=== PATIENT | female | born 1955 | race Caucasian/White ===

== ENCOUNTER 2017-04-13 00:59 | Day surgery (SDC) | payer OTHER ==
[2013-08-30 13:09] VITALS: Ht 160 cm; Wt 99.8 kg
[~2017-04-13] VITALS: Ht 160 cm; Wt 99.8 kg
[~2017-04-13 00:59] MED LIST: ALPR-429 PO; ASP81; ASPI-816 PO; BUTA1CAP51 PO; CALC-18 PO; CEPH250C37 PO; CIPR-214 PO; CLOB15CR22 TP; CLOB15OI TP; CLOB50FO2 TP; CODE118S5 PO; CRAN250C2; ESOM40CA42 PO; ESTR42.5 VG; FLUT16SP19 NS; HYDR12.556 PO; IBUP800T37 PO; LISI-362 PO; LISI20TA29 PO; LOSA50TA68 PO; MULT-804; NITR-105 PO; OMEG500C5 PO; OXYC-865 PO; PHEN15CA69 PO; SIM10 PO; SIMV-54 PO; SIMV10TA98 PO; SPIR25TA78 PO; SPIR50TA30 PO; SUMA100T32 PO; ZOL5 PO; ZOLP-1 PO; ZOLP-358 PO; [UNRECOGNIZED DRUG - CODE]; [UNRECOGNIZED DRUG - CODE] TP
[2017-04-13 07:46] VITALS: BP 130/84
[2017-04-13] MEDS ORDERED: MIDAZOLAM 2 MG/2 ML VIAL IVP PRN (08:15)
[2017-04-13] MEDS ORDERED: NORMOSOL R SOLN(*) 1000 ML BAG 1,000 ML IV PRN (08:15)
[2017-04-13] MEDS ORDERED: LIDOCAINE/SOD BICARB 8.4% SYR ID ONE (08:15)
[2017-04-13 09:43] VITALS: BP 102/62
--- NOTE | 2017-04-13 09:53 | Short(Outpt) Discharge Summary ---
Discharge Summary Reason for Hosp/Final Diag: (1) History of colon polyps Status: Chronic Hospital Course & Plan: Colonoscopy with polypectomy x5 completed without problems. Departure Discharge to: Home, Self Care Discharge Instructions Home Meds Active Scripts Hydrochlorothiazide (HYDROCHLOROTHIAZIDE) 12.5 Mg Capsule, 2 TAB PO DAILY, #180 CAPSULE 4 Refills Prov:JEISON GHOTRA MD 04/04/17 Simvastatin (SIMVASTATIN) 40 Mg Tablet, 40 MG PO HS, #90 TAB 3 Refills Prov:JEISON GHOTRA MD 03/17/17 Alprazolam (XANAX) 0.5 Mg Tablet, 1 TAB PO TID for Anxiety, #30 TAB Prov:JEISON GHOTRA MD 01/24/17 Zolpidem Tartrate (AMBIEN) 5 Mg Tablet, 1 TAB PO QODAY, #45 TAB 1 Refill Prov:JEISON GHOTRA MD 01/24/17 Butalbital/Aspirin/Caffeine (FIORINAL 50-325-40 MG CAPSULE) 1 Each Capsule, 1-2 EACH PO Q6H for headache, #20 CAPSULE Prov:CORWIN FLORENTINO MD 12/04/16 Losartan Potassium (COZAAR) 50 Mg Tablet, 1 TAB PO QDAY, #90 TAB 3 Refills Prov:JEISON GHOTRA MD 07/07/16 Clobetasol Propionate/Emoll (CLOBETASOL EMOLLIENT 0.05% CRM) 15 Gm Cream..g., 0 TP BID, #1 TUBE 3 Refills Prov:JEISON GHOTRA MD 11/13/15 Reported Medications Estrogens, Conjugated 0.625 Mg/Ml Vag Cream (PREMARIN 0.625 MG/ML VAGINAL CR) 42.5 Gm Cream.appl, 0 VG BID, TUBE 3 [place]-3 Fatty Acids (FISH OIL) Unknown Strength Capsule.dr, PO 10/07/14 Cholecalciferol (Vitamin D) 2,000 Unit Tablet 04/06/12 Discontinued Scripts Esomeprazole Magnesium (NEXIUM) 40 Mg Capsule.dr, 1 CAP PO QDAY, #30 CAP 5 Refills Prov:JEISON GHOTRA MD 01/24/17 Fluticasone Prop 50 Mcg Ns (FLONASE 50 MCG NS) 16 Gm Java.susp, 2 SPRAYS NS QDAY, #1 BOT 3 Refills Prov:JEISON GHOTRA MD 06/08/16 Sumatriptan Succinate (IMITREX) 100 Mg Tablet, 100 MG PO ONCE, #10 TAB 3 Refills Take one tablet at onset of headache and repeat in 2 hours if needed. Prov:JEISON GHOTRA MD 12/15/15 Diet: Regular Activity: As Tolerated Special Instructions: Your colonoscopy was completed without any problems and your prep was excellent (Good Job!!). I removed 5 tiny polyps from your colon. I didn't find any other abnormalities. My office will call you in the next week to let you know what the polyps are and when your next colonoscopy should be based on the pathology results. SHARMIN ADAME MD Apr 13, 2017 09:53
[2017-04-13 10:15] VITALS: BP 104/76
[2017-04-13 10:23] VITALS: BP 112/75
[2017-04-13 10:26] VITALS: BP 124/69
[2017-04-13] MEDS ORDERED: LIDOCAINE MPF 1% 5 ML VIAL ONE (12:00)
[2017-04-13] MEDS ORDERED: PROPOFOL EMUL(*) 10MG/ML 20 ML 20 ML ONE (12:00)
== END 2017-04-13 10:38 | disposition home or self-care (01) ==
LOC: OR 00:59
PROVIDERS: ATTEND Surgery
DX: D12.4 Benign neoplasm of descending colon (principal); D12.3 Benign neoplasm of transverse colon; K63.5 Polyp of colon
CPT/HCPCS: 00811; 45385; 88305; J2001; J2704

== ENCOUNTER → 2017-04-15 | Outpatient (CLI) | payer OTHER ==
[2013-08-30 13:09] VITALS: BMI 34.2
== END ==
LOC: LAB 12:37
PROVIDERS: ATTEND Emergency Medicine
DX: R30.0 Dysuria (principal); B96.20 Unspecified Escherichia coli [E. coli] as the cause of diseases classified elsewhere
CPT/HCPCS: 81001; 87077; 87088; 87186

== ENCOUNTER → 2017-04-23 | Outpatient (CLI) | payer OTHER ==
[2013-08-30 13:09] VITALS: BMI 34.2
== END ==
LOC: RESP 20:03
PROVIDERS: ATTEND Emergency Medicine
DX: G47.33 Obstructive sleep apnea (adult) (pediatric) (principal); G47.37 Central sleep apnea in conditions classified elsewhere; G47.36 Sleep related hypoventilation in conditions classified elsewhere; E66.9 Obesity, unspecified

== ENCOUNTER → 2017-05-07 | Outpatient (CLI) | payer OTHER ==
[2013-08-30 13:09] VITALS: BMI 34.2
== END ==
LOC: RESP 20:03
PROVIDERS: ATTEND Emergency Medicine
DX: G47.33 Obstructive sleep apnea (adult) (pediatric) (principal); G47.37 Central sleep apnea in conditions classified elsewhere; G47.36 Sleep related hypoventilation in conditions classified elsewhere; E66.9 Obesity, unspecified

== ENCOUNTER → 2017-05-25 | Outpatient (CLI) | payer OTHER ==
[2013-08-30 13:09] VITALS: BMI 34.2
== END ==
LOC: RESP 19:59
PROVIDERS: ATTEND Emergency Medicine
DX: G47.33 Obstructive sleep apnea (adult) (pediatric) (principal); G47.37 Central sleep apnea in conditions classified elsewhere; E66.9 Obesity, unspecified

== ENCOUNTER → 2017-11-16 | Outpatient (CLI) | payer OTHER ==
[2013-08-30 13:09] VITALS: BMI 34.2
[~2017-11-16] MED LIST changes: -ASPI-816 PO; +ASPI-870 PO; +BUPR-472 PO; +CIPR-345 PO; +ESTR42.5 PV; +HYDR-2966 PO; -SPIR25TA78 PO; +SPIR25TA80 PO
== END ==
LOC: LAB 15:55
PROVIDERS: ATTEND Emergency Medicine
DX: R30.0 Dysuria (principal); R82.79 Other abnormal findings on microbiological examination of urine
CPT/HCPCS: 81001; 87077; 87088; 87186

== ENCOUNTER → 2018-02-07 | Outpatient (CLI) | payer OTHER ==
[2013-08-30 13:09] VITALS: BMI 34.2
[~2018-02-07] MED LIST changes: +CIPR-344 PO
--- NOTE | 2018-02-08 08:24 | RADIOLOGY IMAGING REPORT ---
FACILITY: [facility] PATIENT NAME: ABILIO RYAN : [id number] MR: [id number] V: [id number] EXAM DATE: ORDERING PHYSICIAN: SERENE ESCOBAR TECHNOLOGIST: Lissett Choi PROCEDURE:BILATERAL DIGITAL SCREENING MAMMOGRAM WITH CAD ASSISTED INTERPRETATION & 3D TOMOSYNTHESIS COMPARISON:Prior mammograms 01/24/17, 12/18/15, 11/18/14, 11/15/13, 12/18/12, 07/05/12. INDICATIONS:SCREENING FINDINGS: A small amount of fibroglandular tissue is seen throughout the breasts. The parenchymal pattern has remained stable allowing for difference in mammographic technique & patient positioning. There is no evidence of malignant appearing mass, malignant appearing calcifications or other secondary sign of malignancy in either breast. DIAGNOSTIC CATEGORY 1--NEGATIVE. RECOMMENDATIONS: ROUTINE MAMMOGRAM AND CLINICAL EVALUATION. IMPRESSION: BIRADS 1: Negative. No significant abnormality is seen. Dictated by: Silva Mosquera M.D. on 02/07/2018 at 16:35 Transcribed by: ELLE on 02/08/2018 at 8:16 Approved by: Silva Mosquera M.D. on 02/08/2018 at 8:23 [facility]
== END ==
LOC: MAMO 01:07
PROVIDERS: ATTEND Obstetrics & Gynecology
DX: Z12.31 Encounter for screening mammogram for malignant neoplasm of breast (principal)
CPT/HCPCS: 77063; 77067

== ENCOUNTER → 2018-05-12 | Outpatient (CLI) | payer OTHER ==
[2013-08-30 13:09] VITALS: BMI 34.2
[~2018-05-12] MED LIST changes: +DIAZ-308 PO
[2018-05-12 15:42] LABS: PLATELET COUNT, AUTOMATED 238 K/uL (150-450)
[2018-05-12 15:54] LABS: INR 1.01
== END ==
LOC: LAB 15:21
PROVIDERS: ATTEND Nurse Practitioner Primary Care
DX: H53.8 Other visual disturbances (principal)
CPT/HCPCS: 36415; 82040; 82247; 82310; 82374; 82435; 82565; 82947; 84075; 84132; 84155; 84295; 84443; 84450; 84460; 84520; 85025; 85610; 85651; 85730; 86140

== ENCOUNTER → 2018-05-15 | Outpatient (CLI) | payer OTHER ==
[2013-08-30 13:09] VITALS: BMI 34.2
[~2018-05-15] MED LIST changes: +GADOBENATE 529MG/1ML 15ML VIAL IVP ONE
--- NOTE | 2018-05-15 13:48 | RADIOLOGY IMAGING REPORT ---
FACILITY: [facility] PATIENT NAME: Yanet Hylton : 1955 MR: [id number] V: [id number] EXAM DATE: ORDERING PHYSICIAN: MYNOR CORONADO TECHNOLOGIST: Location: [facility] [place] Patient: Yanet Hylton : 1955 Visit/Account:[id number] Date of Sevice: 05/15/2018 EXAMINATION: MRI Brain without intravenous contrast MRI Brain with intravenous contrast HISTORY: Blurry vision. COMPARISON: Noncontrast head CT dated 12/04/2016. TECHNIQUE: Multi-planar, multi-sequence brain MRI was performed before and after IV gadolinium. CONTRAST: 15 mL of IV MultiHance FINDINGS: Brain volume: Normal. Sagittal midline structures: Negative. Ventricles: Negative. Acute ischemic changes: None. Hemorrhage: None. Masses / edema: None. Enhancement: Negative. Arreaga-white: Negative. White matter: Negative. Vessels: Negative. Extra-axial: Negative. Calvarium / scalp: Negative. Skull base: Negative. Visualized sinuses / orbits: Rightward nasal septal deviation. Visualized upper neck: Negative. IMPRESSION: 1. Rightward nasal septal deviation. 2. Otherwise normal brain MRI without and with IV contrast. Report Dictated By: Mika Buck MD at 05/15/2018 1:40 PM Report E-Signed By: Mika Buck MD at 05/15/2018 1:44 PM WSN:[email or web address]
== END ==
LOC: MRI 06:59
PROVIDERS: ATTEND Nurse Practitioner Primary Care
DX: J34.2 Deviated nasal septum (principal)
CPT/HCPCS: 70553; A9577

== ENCOUNTER → 2018-08-01 | Outpatient (REF) ==
[2013-08-30 13:09] VITALS: BMI 34.2
[~2018-08-01] MED LIST changes: -GADOBENATE 529MG/1ML 15ML VIAL IVP ONE; +OSE75 PO
[2018-08-01 11:43] LABS: LDL CHOLESTEROL 75 mg/dl
== END ==
DX: Z02.9 Encounter for administrative examinations, unspecified (principal)

== ENCOUNTER → 2018-08-03 | Outpatient (CLI) | payer OTHER ==
[2013-08-30 13:09] VITALS: BMI 34.2
== END ==
LOC: LAB 15:56
PROVIDERS: ATTEND Emergency Medicine
DX: E83.52 Hypercalcemia (principal)
CPT/HCPCS: 36415; 83970

== ENCOUNTER → 2018-08-04 | Outpatient (CLI) | payer OTHER ==
[2013-08-30 13:09] VITALS: BMI 34.2
--- NOTE | 2018-08-04 11:05 | RADIOLOGY IMAGING REPORT ---
FACILITY: [facility] PATIENT NAME: Yanet Hylton : 1955 MR: [id number] V: [id number] EXAM DATE: ORDERING PHYSICIAN: JEISON GHOTRA TECHNOLOGIST: Location: [facility] - [place] Patient: Yanet Hylton : 1955 Visit/Account:[id number] Date of Sevice: 08/04/2018 LIVER HISTORY: Elevated liver enzyme COMPARISON: CT IVP June 12, 2008 FINDINGS: Gallbladder: There multiple shadowing stones within the gallbladder. Also noted is a 1.5 x 2.3 cm sh adowing partially calcified structure within the gallbladder likely a sludge ball The gallbladder wal l is not thickened and there is no evidence of a Mcmullen's sign. Liver: The liver is normal in size measuring 15.6 cm in length. No focal masses were demonstrated. The previously demonstrated hemangiomas on the prior CT were not well seen today. Elastography demon strates a nonfatty liver Common duct: Normal, 3.2 mm diameter. Pancreas: Partially obscured by bowel, visualized aspects unremarkable. Right kidney: The kidney appears unremarkable measuring 10.8 cm in length Upper abdominal aorta and IVC: Patent. Ascites: None visualized. IMPRESSION: Cholelithiasis and probable 2.3 cm partially calcified sludge ball within the gallbladder. There is no evidence of biliary ductal dilatation or positive Mcmullen sign. The liver is normal in size. Elastography demonstrates a nonfatty liver Report Dictated By: Silva Mosquera MD at 08/04/2018 10:53 AM Report E-Signed By: Silva Mosquera MD at 08/04/2018 11:01 AM WSN:[email or web address]
== END ==
LOC: US 07:09
PROVIDERS: ATTEND Emergency Medicine
DX: K80.20 Calculus of gallbladder without cholecystitis without obstruction (principal)
CPT/HCPCS: 76705

== ENCOUNTER → 2018-10-30 | Outpatient (CLI) | payer OTHER ==
[2013-08-30 13:09] VITALS: BMI 34.2
== END ==
LOC: LAB 09:52
PROVIDERS: ATTEND Emergency Medicine
DX: R30.0 Dysuria (principal)
CPT/HCPCS: 81001